=== PATIENT | female | born 1955 ===

== ENCOUNTER 2017-05-26 06:21 | Day surgery (SDC) | payer MEDICARE, MEDICAID ==
[2017-05-14 12:19] VITALS: BMI 26.7
[2017-05-26] MEDS ORDERED: Liquid Adhesive TOP ONE (07:27)
[2017-05-26] MEDS ORDERED: Lidocaine 1% Inj (20ml) ONE (07:27)
[2017-05-26] MEDS ORDERED: Bupivacaine 0.5% Inj(30mL) ONE (07:27)
[2017-05-26] MEDS ORDERED: Midazolam 2 MG/2 ML VIAL ONE (07:42)
[2017-05-26] MEDS ORDERED: Propofol 10 mg/ml Inj (20 ML) ONE (07:42)
[2017-05-26] MEDS ORDERED: Phenylephrine 10 mg/ml Inj ONE (09:21)
[2017-05-26] MEDS ORDERED: HYDROmorphone 0.5 mg/0.5 ml ISec IVP PRN (10:43)
[2017-05-26] MEDS ORDERED: Lactated Ringer's 1,000 ML IV SCH (10:45)
--- NOTE | 2017-05-26 10:46 | PCM.SURG1 ---
Surgeon's Initial Post Op Note - Surgeon's Notes Surgeon: Dr. Layo Ly DPM [employer] Renew[employer] Manager: Dr. Juancarlos Charles DPM PGY1 Type of Anesthesia: General Endo Anesthesia Administered By: Dr. Velasquez Pre-Operative Diagnosis: 1) Hallux abducto valgus, 2) Metatarsus primus varus, 3 ) Metatarsus adductus Operative Findings: See operative report. Metarials: Orthosorb 1.3mm tapered pin; Synthes BME Elite Nitinol Compression Implant [id number] & [id number]; 2-0 Vicryl ; 4-0 Vicryl; 4-0 Nylon. Injectables: 25cc 0.5% marcaine plain; 2cc 1:1 mixture Integra BioFix Flow Allograft & Normal Saline Post-Operative Diagnosis: 1) Hallux abducto valgus, 2) Metatarsus primus varus, 3) Metatarsus adductus Operation Performed: 1) Reverdin osteotomy 2) Lapidus bunionectomy Specimen/Specimens Removed: None Estimated Blood Loss: EBL {In ML}: 5 Blood Products Given: N/A Drains Used: No Drains Post-Op Condition: Good Date of Surgery/Procedure: 05/26/17 Time of Surgery/Procedure: 08:00
[2017-05-26] MEDS ORDERED: Oxycodone/Acetaminophen 5/325 mg Tab PO PRN ×2 (10:51)
[2017-05-26 11:54] VITALS: BP 129/87; PULSE 87; RESP 20; TEMP 98.3; O2SAT 95
--- NOTE | 2017-05-26 12:19 | RAD ---
PROCEDURE: Left Foot Radiographs. HISTORY: s/p left foot surgery COMPARISON: None. FINDINGS: BONES: Surgical hardware is seen at the base of the 1st metatarsal and cuneiform. There has also been osteotomy at the 1st MTP joint. Film was obtained through plaster JOINTS: Normal. SOFT TISSUES: Normal. OTHER FINDINGS: None. IMPRESSION: Surgical hardware is seen at the base of the 1st metatarsal and cuneiform. There has also been osteotomy at the 1st MTP joint. Film was obtained through plaster normal alignment
--- NOTE | 2017-05-26 12:35 | RAD ---
PROCEDURE: Fluoroscopy over 1 hour HISTORY: ORIF LT FOOT COMPARISON: TECHNIQUE: Fluoroscopy was provided in the operating room. 9.2 seconds of fluoro time. Four images were submitted FINDINGS: The study shows placement of surgical hardware at the base of the 1st metatarsal IMPRESSION: As above
--- NOTE | 2017-05-27 06:16 | OP ---
PROCEDURE DATE: 05/26/2017 SURGEON: Dr. Layo Ly DPM BUS PERSON DISHWASHER: Dr. Juancarlos Charles DPM, PGY-1 TYPE OF ANESTHESIA: General. ANESTHESIA ADMINISTERED BY: Dr. Velasquez. PREOPERATIVE DIAGNOSES: 1. Hallux abducto valgus, left foot. 2. Metatarsus primus varus, left foot. 3. Metatarsus abductus, left foot. POSTOPERATIVE DIAGNOSES: 1. Hallux abducto valgus, left foot. 2. Metatarsus primus varus, left foot. 3. Metatarsus abductus, left foot. PROCEDURE: 1. Reverdin osteotomy, left foot. 2. Lapidus bunionectomy, left foot. 3. Application of placental tissue matrix allograft, left foot. INDICATION: The patient is a 61-year-old female with the aforementioned diagnoses. The patient has exhausted all conservative treatments at this time and now requests surgical intervention. The patient's sister was present in SDS as proxy regarding explanation of procedure along with risks, benefits, complications, and alternatives to surgical procedure. No guarantees were given nor implied. After answering all the patient's sister's questions and concerns, the patient's sister signed consent for the procedure and a nurse was present as a witness. PREPARATION: The patient was brought into the operating room and placed on the operating room table in the supine position. A time-out was performed for identification of the correct patient and procedure. After the induction of general anesthesia, the left foot was then prepped and draped in usual sterile manner. A sterile pneumatic ankle tourniquet was placed on the patient's left ankle in the supramalleolar position. An esmarch was used to exsanguinate the foot, the tourniquet was inflated to 225 mmHg, and the procedure began. DESCRIPTION OF PROCEDURE: PROCEDURE #1: Reverdin osteotomy Attention was directed to the dorsomedial aspect of the first ray of the patient's left foot. Utilizing a #15 blade, a linear incision was made, extending from the mid shaft of the first metatarsal to the first metatarsophalangeal joint. The incision was deepened through subcutaneous tissues using sharp and blunt dissection. Care was taken to identify and retract all vital neurovascular structures. All bleeders were cauterized and ligated as necessary. Attention was then directed to the first interspace via the original incision where the deep transverse metatarsal ligament was identified and transected using a 6400 [place] blade. Dissection was continued deep using blunt dissection down to the level of the fibular sesamoid, which was freed of its soft tissue attachments proximally, laterally, and distally again with the 6400 blade. The conjoined tendon of the adductor hallucis muscle was then identified and transected at its attachments at the base of the proximal phalanx of the hallux. At this time, the lateral contracture present on the hallux was noted to be reduced. At this time, utilizing a #15 blade, an inverted L-type capsulotomy was performed over the dorsal and medial aspects of the first metatarsophalangeal joint. The periosteal and capsular structures were then carefully dissected free of the attachments and reflected medially and laterally thus exposing the head of the first metatarsal. It was noted that the cartilage of the dorsal and medial aspects of the 1st metatarsal head were damaged. Using an oscillating bone saw, the dorsal and medial prominences of the first metatarsal head were resected and passed from the operative field, removing any remaining damaged articular cartilage; all rough edges were then smoothed down with the oscillating saw. Attention was then directed to the dorsal aspect of the first metatarsal head, where a medially based wedge osteotomy was created utilizing an oscillating bone saw. Care was taken to leave the lateral hinge intact. Upon completion of the osteotomy, the capital fragment was shifted proximally into a more corrected position and impacted upon the first metatarsal shaft. At this time, a 0.045 inch K-wire was driven from distal plantar to proximal dorsal across the osteotomy site to serve as temporary fixation. Next, carefully removing the K wire, an Orthosorb 1.3 mm tapered pin was placed at the site of the previous K-wire. Using a bone cutter, the Orthosorb pin was cut flush along the articular cartilage distally and flush with the dorsal cortex. PROCEDURE #1: Lapidus bunionectomy Next, attention was directed to the dorsomedial aspect of the first metatarsal cuneiform joint. The previous skin incision was extended approximately 4 mm proximal, from the first metatarsal shaft proximal to the first metatarsal cuneiform joint using a #15 blade. This incision was deepened using sharp and blunt dissection taking care to retract all vital neurovascular structures. All bleeders were cauterized and ligated as necessary. At this time the EHL tendon was retracted laterally, and the tibialis anterior tendon was noted and preserved. The periosteal tissue was then reflected medially and laterally using a freer elevator. Next, two 0.062 K-wires were inserted at the midpoint of the first metatarsal base and distal aspect of the medial cuneiform. Using a Hintermann distractor, the first metatarsal cuneiform joint was distracted noting good visualization of the articular surfaces. At this time, the cartilage was resected via planar resection utilizing an oscillating saw from the base of the first metatarsal. Care was taken to also resect part of the lateral side of the 1st metatarsal base to allow proper alignment with the 2nd metatarsal base. Next, a laterally based wedge was resected utilizing an oscillating saw from the medial cuneiform, which was the corrective cut on the cuneiform allowing for further reduction of intermetatarsal angle 1-2. Once these cuts were made, a 2.0 mm drill bit was utilized to drill the subchondral bone of the medial cuneiform and then the first metatarsal base for joint preparation. The Hintermann distractor was released, and the first metatarsal was then impacted on the medial cuneiform. The intermetatarsal 1-2 angle previously noted to be 26 degrees was then reduced, and noted to be within normal limits. This reduction was maintained using a bone clamp. At this time, intraoperative fluoroscopy was used for assessment of the correction, which was noted to be in excellent position and anatomical alignment along with reduced dorsiflexion of the first metatarsal. Next, directing attention to the medial aspect of the first metatarsal cuneiform joint, a Synthes BME Elite Nitinol compression implant, size 18 x 18 mm, was measured and then placed on the medial aspect of the first metatarsal cuneiform joint allowing forthe compression of the joint. Next, directing attention to the dorsum of the first metatarsal cuneiform joint, a second Synthes BME Elite Nitinol compression implant measuring 20 x 20mm was sized and then inserted on to the dorsal aspect of the joint. Next, autologous bone graft from the subchondral bone from the medial cuneiform piece that was resected along with the first metatarsal base that was resected. This bone graft was then inserted into the lateral aspect of the first metatarsal cuneiform joint filling any deficit that was present. The surgical site was irrigated with copious amounts of normal sterile saline. At this time, the capsular tissue was reapproximated using 2-0 Vicryl suture material in a simple running technique. The subcutaneous tissue was then reapproximated utilizing 4-0 Vicryl in the running subcutaneous technique. The skin was reapproximated using 4-0 nylon in a running horizontal technique. At this time, an intraoperative block just proximal to the surgical incision was made in the mid foot in a ring block fashion with approximately 25 mL of 0.5% Marcaine plain. PROCEDURE #3: Application of placental tissue matrix allograft Next, directing attention to the first metatarsal cuneiform joint, 2 mL of 1:1 mixture of placental tissue matrix allograft and normal saline solution was injected into the first metatarsal cuneiform joint. At this time, intraoperative fluoroscopy was used to assess correction, and it was noted to be satisfactory. The left foot was then dressed with Betadine-soaked Adaptic on to the incision, dry sterile dressing and a posterior splint to the left foot. Postoperative condition: The patient tolerated the anesthesia and the procedure well and was escorted to the recovery room with vital signs stable and neurovascular status intact to the left lower extremity. The patient is to be nonweightbearing to the left lower extremity with the assistance of a standard walker. The patient is to keep the dressing clean, dry, and intact until her first postoperative visit with Dr. Ly. The patient will follow up with Dr. Ly in the office in 1 week. Juancarlos Key DPM Layo Ly DPM HALLE
== END 2017-05-26 16:30 | disposition home or self-care (01) ==
LOC: SDS 06:21
PROVIDERS: ATTEND Podiatrist
DX: M20.12 Hallux valgus (acquired), left foot (principal)
CPT/HCPCS: 28297; 73630; 76001; 97116; G8978; G8979; G8980; J0690; J1170; J1885; J2250; J2370; J2405; J2704; J3010; J7120